=== PATIENT | female | born 1970 | race Caucasian/White ===

== ENCOUNTER 2019-04-26 06:49 | Day surgery (SDC) | payer OTHER ==
[~2019-04-26] VITALS: Ht 167.6 cm; Wt 71.4 kg
[~2019-04-26 06:49] MED LIST: SODIUM CHLORIDE 0.9% 1,000 ML IV ONE
[2019-04-26] MEDS ORDERED: LIDOCAINE 4% 50 ML SOLUTION TP ONE (06:50)
[2019-04-26] MEDS ORDERED: ALBUTEROL SULFATE 2.5 MG/0.5 ML NEB SOLUTION NEB ONE (06:50)
[2019-04-26] MEDS ORDERED: BENZOCAINE 20% 50 MCG/SPRAY 57 GM TP ONE (06:50)
[2019-04-26] MEDS ORDERED: LIDOCAINE 2% 30 ML JELLY TP ONE (06:50)
[2019-04-26] MEDS ORDERED: SODIUM CHLORIDE 0.9% 1,000 ML IV ONE (07:32)
[2019-04-26] MEDS ORDERED: FentaNYL CITRATE-PF 100 MCG/2 ML VIAL ONE (08:07)
[2019-04-26] MEDS ORDERED: MIDAZOLAM HCL 2 MG/2 ML VIAL ONE (08:07)
[2019-04-26] MEDS ORDERED: MethylPREDNISolone SOD SUCC 125 MG/2 ML VIAL IVP ONE (09:15)
[2019-04-26] MEDS ORDERED: MethylPREDNISolone SOD SUCC 125 MG/2 ML VIAL ONE (09:30)
[2019-04-26] MEDS ORDERED: OXYGEN THERAPY IH SCH (20:00)
== END 2019-04-26 11:00 | disposition home or self-care (01) ==
LOC: SURGERY 06:49
PROVIDERS: ATTEND Internal Medicine Critical Care Medicine
DX: R05 Cough (principal); R91.1 Solitary pulmonary nodule; J98.8 Other specified respiratory disorders; J34.89 Other specified disorders of nose and nasal sinuses; B37.0 Candidal stomatitis; J38.4 Edema of larynx; Z88.0 Allergy status to penicillin
CPT/HCPCS: 31623; 31624; 71045; 84703; 87015; 87070; 87101; 87205; 87206; 87220; 88108; 88312; J2250; J2930; J3010; J7030